=== PATIENT | male | born 1955 | race African-American/Black ===

== ENCOUNTER 2016-06-12 08:36 | Outpatient (CLI) | payer MEDICARE, MEDICAID ==
[2016-06-12 09:02] LABS: Bilirubin Negative (Negative); Blood, Urine Trace (Negative); Clarity Clear (Clear); Glucose, Urine (Dipstick) Negative (Negative); Leukocyte Negative (Negative); Nitrite Negative (Negative); Protein, Urine (Dipstick) Negative (Neg-Trace); Specific Gravity, Urine 1.025 (1.005-1.030); Urobilinogen 0.2 mg/dL (0.2-1.0); pH, Urine 6.5 (5.0-9.0)
[2016-06-12 09:08] LABS: Hemoglobin 13.2 g/dL (14.0-18.0); Mean Corpuscular HGB CONC 34.3 g/dL (32.0-36.0); Mean Corpuscular Hemoglobin 32.9 pg (27.0-31.0); Platelet Count 194 thou/uL (130-400); RBC Distribution Width 12.1 % (11.5-14.5); Red Blood Cell (RBC) Count 4.02 mill/uL (4.70-6.10); White Blood Cell (WBC) Count 6.2 thou/uL (4.8-10.8)
[2016-06-12 09:15] LABS: Hemoglobin A1c 5.5 % (4.0-6.0)
[2016-06-12 09:16] LABS: Bacteria/HPF None Seen HPF (None Seen); RBC/HPF None Seen HPF (0-3); Squamous Epithelial 0-3 HPF (0-3); WBC/HPF None Seen HPF (0-3)
[2016-06-12 09:31] LABS: Amphetamine Not Detected (NotDetected); Barbiturates Screen Not Detected (NotDetected); Benzodiazepine Screen Not Detected (NotDetected); Cocaine Metabolite Screen Not Detected (NotDetected); Medtox Control Line Valid? VALID (VALID); Methadone Not Detected (NotDetected); Methamphetamine Not Detected (NotDetected); Opiate Screen Detected (NotDetected); Oxycodone Screen Not Detected (NotDetected); Phencyclidine (PCP) Not Detected (NotDetected); THC/Cannabinoid Screen Not Detected (NotDetected); Tricyclic Screen Detected (NotDetected)
[2016-06-12 09:46] LABS: ALT (SGPT) 23 U/L (0-55); AST (SGOT) 44 U/L (5-34); Albumin 3.8 g/dL (3.5-5.0); Alkaline Phosphatase 73 U/L (40-150); Anion Gap 15 mmol/L (10-20); BUN (Urea Nitrogen) 11 mg/dL (8.4-25.7); Bilirubin, Total 0.4 mg/dL (0.2-1.2); Calc. Creatinine Clearance 0 mL/min (70-130); Calcium 9.2 mg/dL (7.8-10.44); Carbon Dioxide 23 mmol/L (22-29); Cardiac Risk 2.4 (Less than 4.5); Chloride 104 mmol/L (98-107); Cholesterol 111 mg/dL (< 200 Desired); Estimated GFR-MDRD Greater than 90; Globulin 3.2 g/dL (2.4-3.5); Glucose 88 mg/dL (70-105); HDL Cholesterol 47 mg/dL (>60 Neg Risk); LDL Cholesterol, Calculated 53 mg/dL; Sodium 138 mmol/L (136-145); Triglycerides 55 mg/dL (Less than 150); Uric Acid 5.3 mg/dL (3.5-7.2)
[2016-06-12 10:05] LABS: Free T4 (Free Thyroxine) 0.9 ng/dL (0.70-1.48); PSA-Asymptomatic (SCREENING) 0.16 ng/mL (0-4.0); Thyroid Stimulating Hormone 1.7748 uIU/mL (0.35-4.94)
[2016-06-12 17:11] LABS: Creatinine, Urine 118.81 mg/dL (63-166); Microalbumin Urine Less than 1.0 mg/dL (0.5-50.0); Microalbumin/Creat Ratio 8.4 mg/g (Less than 30)
[2016-06-12 17:36] LABS: Folate (Folic Acid) 18.9 ng/mL (7.0-31.4)
== END 2016-06-12 08:37 | disposition home or self-care (01) ==
LOC: MADLAB 08:36
PROVIDERS: ATTEND Family Medicine
DX: Z12.39 Encounter for other screening for malignant neoplasm of breast (principal); E03.9 Hypothyroidism, unspecified; R53.82 Chronic fatigue, unspecified; E78.2 Mixed hyperlipidemia; E11.9 Type 2 diabetes mellitus without complications; Z79.891 Long term (current) use of opiate analgesic
CPT/HCPCS: 36415; 80053; 80061; 80306; 81001; 82043; 82570; 82607; 82746; 83036; 84439; 84443; 84550; 85027; G0103

== ENCOUNTER 2016-11-30 10:07 | Outpatient (CLI) | payer MEDICARE, MEDICAID ==
[2016-11-30 10:43] LABS: Hemoglobin A1c 6.1 % (4.0-6.0)
[2016-11-30 10:53] LABS: Hemoglobin 13.6 g/dL (14.0-18.0); Mean Corpuscular Hemoglobin 32.2 pg (27.0-31.0); Mean Corpuscular Volume 97.6 fl (80.0-94.0); Mean Platelet Volume 7.1 fL (7.4-10.4); Platelet Count 177 thou/uL (130-400); RBC Distribution Width 12.4 % (11.5-14.5); Red Blood Cell (RBC) Count 4.22 mill/uL (4.70-6.10); White Blood Cell (WBC) Count 6.2 thou/uL (4.8-10.8)
[2016-11-30 10:55] LABS: ALT (SGPT) 23 U/L (8-55); AST (SGOT) 30 U/L (5-34); Albumin 3.6 g/dL (3.5-5.0); Alkaline Phosphatase 97 U/L (40-150); Anion Gap 12 mmol/L (10-20); BUN (Urea Nitrogen) 11 mg/dL (8.4-25.7); Bilirubin, Total 0.3 mg/dL (0.2-1.2); Calc. Creatinine Clearance 0 mL/min (70-130); Calcium 9.3 mg/dL (7.8-10.44); Carbon Dioxide 24 mmol/L (22-29); Cardiac Risk 3.3 (Less than 4.5); Chloride 103 mmol/L (98-107); Cholesterol 116 mg/dl (< 200 Desired); Estimated GFR-MDRD 86; Globulin 3.6 g/dL (2.4-3.5); Glucose 210 mg/dL (70-105); HDL Cholesterol 35 mg/dL (>60 Neg Risk); LDL Cholesterol, Calculated 36 mg/dL; Potassium 4.1 mmol/L (3.5-5.1); Protein, Total 7.2 g/dL (6.0-8.3); Sodium 135 mmol/L (136-145); Triglycerides 227 mg/dL (Less than 150); Uric Acid 4.7 mg/dL (3.5-7.2)
[2016-11-30 11:25] LABS: Free T4 (Free Thyroxine) 0.98 ng/dL (0.70-1.48); PSA-Asymptomatic (SCREENING) 0.15 ng/mL (0-4.0); Thyroid Stimulating Hormone 1.3249 uIU/mL (0.35-4.94)
[2016-11-30 17:53] LABS: Creatinine, Urine 154.83 mg/dL (63-166); Microalbumin Urine Less than 1.0 mg/dL (0.5-50.0); Microalbumin/Creat Ratio 6.5 mg/g (Less than 30)
== END 2016-11-30 10:08 | disposition home or self-care (01) ==
LOC: MADLAB 10:07
PROVIDERS: ATTEND Family Medicine
DX: Z12.39 Encounter for other screening for malignant neoplasm of breast (principal); E03.9 Hypothyroidism, unspecified; E11.9 Type 2 diabetes mellitus without complications; I10 Essential (primary) hypertension; R53.82 Chronic fatigue, unspecified
CPT/HCPCS: 36415; 80053; 80061; 82043; 83036; 84439; 84443; 84550; 85027; G0103

== ENCOUNTER 2016-12-15 10:03 | Outpatient (CLI) | payer MEDICARE, MEDICAID ==
[2016-12-15 10:33] LABS: Hemoglobin 13.1 g/dL (14.0-18.0); Mean Corpuscular HGB CONC 33.3 g/dL (32.0-36.0); Mean Corpuscular Hemoglobin 32.3 pg (27.0-31.0); Platelet Count 200 thou/uL (130-400); RBC Distribution Width 12.1 % (11.5-14.5); Red Blood Cell (RBC) Count 4.06 mill/uL (4.70-6.10); White Blood Cell (WBC) Count 6.9 thou/uL (4.8-10.8)
[2016-12-15 10:50] LABS: Band 2 % (5-11); MDiff Complete? YES; Manual Diff?? YES; Monocytes 12 % (0-10); Neutrophil 38 % (42-75)
[2016-12-15 10:51] LABS: Anisocytosis SLIGHT = 6-15 cells (100X) (0-5/hpf); Eosinophils 4 % (0-10); Lymphocytes 44 % (21-51); PLT Morphology Comment Appears Adequate
[2016-12-15 10:54] LABS: ALT (SGPT) 20 U/L (8-55); AST (SGOT) 30 U/L (5-34); Albumin 3.8 g/dL (3.5-5.0); Alkaline Phosphatase 107 U/L (40-150); Anion Gap 11 mmol/L (10-20); BUN (Urea Nitrogen) 13 mg/dL (8.4-25.7); Bilirubin, Total 0.3 mg/dL (0.2-1.2); Calc. Creatinine Clearance 0 mL/min (70-130); Calcium 9.2 mg/dL (7.8-10.44); Carbon Dioxide 25 mmol/L (22-29); Chloride 100 mmol/L (98-107); Estimated GFR-MDRD Greater than 90; Globulin 3.7 g/dL (2.4-3.5); Glucose 217 mg/dL (70-105); Potassium 4.1 mmol/L (3.5-5.1); Protein, Total 7.5 g/dL (6.0-8.3); Sodium 132 mmol/L (136-145); Uric Acid 5.2 mg/dL (3.5-7.2)
== END 2016-12-15 10:04 | disposition home or self-care (01) ==
LOC: MADLAB 10:03
PROVIDERS: ATTEND Podiatrist
DX: E11.40 Type 2 diabetes mellitus with diabetic neuropathy, unspecified (principal); M14.679 Charcot's joint, unspecified ankle and foot
CPT/HCPCS: 36415; 80053; 84550; 85025; 85652

== ENCOUNTER 2017-01-12 09:59 | Outpatient (CLI) | payer MEDICARE, MEDICAID ==
--- NOTE | 2017-01-12 12:19 | CT ---
CT RIGHT FOOT 01/12/2017 PROVIDED CLINICAL HISTORY: Bone spur. FINDINGS: There is no evidence for fracture or other acute osseous abnormality. Alignment appears anatomic. Joint spaces appear preserved. Plantar calcaneal enthesophyte formation is noted. There is nonspec ific, noncircumscribed food density seen within the subcutaneous adipose layer about the medial and lateral malleoli, as well as at the dorsum of the foot, proximally. There is muscular volume loss w ith fatty infiltration involving much of the intrinsic foot musculature. IMPRESSION: 1. Plantar calcaneal enthesophyte formation. 2. Nonspecific, noncircumscribed fluid density within the subcutaneous adipose layer, as described above, which could reflect edema or cellulitis. 3. Muscular volume loss and fatty infiltration involving much of the intrinsic foot musculature. POS: TOÑA
== END 2017-01-12 10:00 | disposition home or self-care (01) ==
LOC: MADCT 09:59
PROVIDERS: ATTEND Podiatrist Foot & Ankle Surgery
DX: E11.621 Type 2 diabetes mellitus with foot ulcer (principal)

== ENCOUNTER 2017-08-17 18:16 | Emergency (ER) | payer MEDICARE, MEDICAID | END 2017-08-17 20:10 | disposition home or self-care (01) | LOC: MADERS 18:16 | DX: Z46.89 Encounter for fitting and adjustment of other specified devices (principal); E11.9 Type 2 diabetes mellitus without complications; E78.5 Hyperlipidemia, unspecified; F17.210 Nicotine dependence, cigarettes, uncomplicated; Z79.899 Other long term (current) drug therapy | CPT/HCPCS: 99282 ==

== ENCOUNTER 2018-06-13 15:04 | Outpatient (CLI) | payer MEDICARE, MEDICAID | END 2018-06-13 15:05 | disposition home or self-care (01) | LOC: MADLAB 15:04 | PROVIDERS: ATTEND Family Medicine | DX: E03.9 Hypothyroidism, unspecified (principal); D50.9 Iron deficiency anemia, unspecified; D51.1 Vitamin B12 deficiency anemia due to selective vitamin B12 malabsorption with proteinuria; D52.9 Folate deficiency anemia, unspecified; E11.9 Type 2 diabetes mellitus without complications; I10 Essential (primary) hypertension | CPT/HCPCS: 82274 ==

== ENCOUNTER 2018-11-23 19:46 | Inpatient (IN) | payer MEDICARE, MEDICAID ==
--- NOTE | 2018-11-23 20:22 | RAD ---
3 views right foot: 11/23/2018 COMPARISON: None HISTORY: Great toe pain FINDINGS: No radiopaque foreign body or subcutaneous gas noted. The soft tissues associated with the great toe distally appear prominent suggesting skin thickening and subcutaneous fat edematous change. No displaced fracture or evidence of dislocation. There is enthesophyte formation at the orig in of the plantar aponeurosis. IMPRESSION: Soft tissue swelling involving the distal aspect of the great toe. Question inflammatory/ infectious change. No acute fracture or dislocation.
[2018-11-23] MEDS ORDERED: Vancomycin HCl 500 MG VIAL ONE (20:28)
[2018-11-23] MEDS ORDERED: Sodium Chloride 0.9% 250 ML 250 ML ONE (20:28)
[2018-11-23 20:48] LABS: Eosinophils 1 % (0-10); Hemoglobin 12.9 g/dL (14.0-18.0); Lymphocytes 24 % (21-51); MDiff Complete? YES; Mean Corpuscular HGB CONC 32.5 g/dL (32.0-36.0); Mean Corpuscular Hemoglobin 31.1 pg (27.0-31.0); Mean Corpuscular Volume 95.7 fL (78.0-98.0); Mean Platelet Volume 7.3 fL (7.4-10.4); Monocytes 6 % (0-10); Neutrophil 66 % (42-75); Platelet Count 178 thou/uL (130-400); Platelet Morphology Comment Appears Adequate; RBC Distribution Width 12.2 % (11.5-14.5); RBC Morphology Normal; Reactive Lymphocytes 3 % (0-10); Red Blood Cell (RBC) Count 4.16 mill/uL (4.70-6.10); White Blood Cell (WBC) Count 8.9 thou/uL (4.8-10.8)
[2018-11-23 20:54] LABS: ALT (SGPT) 12 U/L (8-55); AST (SGOT) 23 U/L (5-34); Albumin 3.6 g/dL (3.4-4.8); Alkaline Phosphatase 100 U/L (40-150); Anion Gap 16 mmol/L (10-20); BUN (Urea Nitrogen) 7 mg/dL (8.4-25.7); Bilirubin, Total 0.3 mg/dL (0.2-1.2); CRP (Inflammatory) 5.19 mg/dL (= or < 0.5); Calc. Creatinine Clearance 0 mL/min (70-130); Calcium 8.9 mg/dL (7.8-10.44); Carbon Dioxide 21 mmol/L (23-31); Chloride 100 mmol/L (98-107); Estimated GFR-MDRD 80; Globulin 3.6 g/dL (2.4-3.5); Glucose 493 mg/dL (80-115); Protein, Total 7.2 g/dL (5.8-8.1); Sodium 133 mmol/L (136-145)
[2018-11-23] MEDS ORDERED: Sodium Chloride 0.9% 1,000 ML ONE (21:04)
[2018-11-23] MEDS ORDERED: Acetaminophen 325 MG TAB PO PRN (23:07)
[2018-11-23] MEDS ORDERED: Gabapentin 300 MG CAP PO PRN (23:12)
[2018-11-23] MEDS ORDERED: Dextrose 50% Abboject 50 ML SYRINGE IVP PRN (23:15)
[2018-11-23] MEDS ORDERED: Dextrose 5% in Water 1,000 ML IV PRN (23:15)
[2018-11-23] MEDS ORDERED: traMADol HCl 50 MG TAB PO PRN (23:16)
[2018-11-23 23:18] VITALS: BMI 28.8
[2018-11-23] MEDS ORDERED: Polyethylene Glycol 3350 17 GM Packet PO PRN (23:19)
[2018-11-23] MEDS ORDERED: Ondansetron ODT 4 MG TAB PO PRN (23:19)
[2018-11-23] MEDS ORDERED: busPIRone HCl 5 MG TAB PO SCH (23:45)
[2018-11-23] MEDS ORDERED: Pravastatin Sodium 20 MG TAB PO SCH (23:45)
[2018-11-23] MEDS ORDERED: Lantus 1000 UNITS/10 ML VIAL SC SCH (23:45)
[2018-11-23] MEDS ORDERED: Ezetimibe 10 MG TAB PO SCH (23:45)
[2018-11-23] MEDS ORDERED: Famotidine 20 MG TAB PO SCH (23:45)
[2018-11-24] MEDS: HYDROcodone/Acetaminophen 10/325 mg Tablet PO PRN ×5 (00:08→21:04)
[2018-11-24] MEDS: HumaLOG 300 UNITS/3 ML VIAL SC PRN ×4 (00:10→16:54)
[2018-11-24 05:25] LABS: Anion Gap 10 mmol/L (10-20); BUN (Urea Nitrogen) 8 mg/dL (8.4-25.7); Calc. Creatinine Clearance 141 mL/min (70-130); Calcium 8.3 mg/dL (7.8-10.44); Carbon Dioxide 26 mmol/L (23-31); Chloride 104 mmol/L (98-107); Estimated GFR-MDRD Greater than 90; Glucose 190 mg/dL (80-115); Potassium 3.5 mmol/L (3.5-5.1); Sodium 136 mmol/L (136-145)
[2018-11-24 05:31] LABS: Band 1 % (5-11); Lymphocytes 36 % (21-51); MDiff Complete? YES; Mean Corpuscular HGB CONC 34.1 g/dL (32.0-36.0); Mean Corpuscular Hemoglobin 32.2 pg (27.0-31.0); Mean Corpuscular Volume 94.4 fL (78.0-98.0); Mean Platelet Volume 6.5 fL (7.4-10.4); Monocytes 13 % (0-10); Neutrophil 43 % (42-75); Platelet Count 154 thou/uL (130-400); Platelet Morphology Comment Appears Adequate; RBC Distribution Width 11.9 % (11.5-14.5); RBC Morphology Normal; Reactive Lymphocytes 7 % (0-10); Red Blood Cell (RBC) Count 3.73 mill/uL (4.70-6.10); White Blood Cell (WBC) Count 6.9 thou/uL (4.8-10.8)
[2018-11-24] MEDS ORDERED: Levothyroxine Sodium 88 MCG TAB PO SCH (06:00)
[2018-11-24] MEDS ORDERED: HumaLOG 300 UNITS/3 ML VIAL SC PRN (06:36)
[2018-11-24] MEDS: busPIRone HCl 5 MG TAB PO SCH ×2 (08:03→20:57)
[2018-11-24] MEDS: Famotidine 20 MG TAB PO SCH ×2 (08:03→20:58)
[2018-11-24] MEDS: Enoxaparin Sodium 40 MG/0.4 ML SYRINGE SC SCH (08:04)
[2018-11-24] MEDS ORDERED: Aspirin 81 mg Enteric Coated Tablet PO SCH (09:00)
[2018-11-24] MEDS ORDERED: traMADol HCl 50 MG TAB PO PRN (11:49)
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
[2018-11-24] MEDS: Gabapentin 300 MG CAP PO SCH ×2 (15:40→20:57)
[2018-11-24] MEDS ORDERED: Vancomycin HCl 1 GM in Sodium Chloride 0.9% 250 ML 250 ML IVPB SCH (21:00)
[2018-11-24] MEDS ORDERED: Lantus 1000 UNITS/10 ML VIAL SC SCH (21:00)
[2018-11-24] MEDS ORDERED: SEROQUEL PO SCH (21:00)
[2018-11-24] MEDS ORDERED: Atorvastatin Calcium 10 MG TAB PO SCH (21:00)
[2018-11-24] MEDS ORDERED: GLIPIZIDE 10 MG PO SCH (21:00)
[2018-11-24] MEDS ORDERED: QUETIAPINE FUMARATE 150 MG PO SCH (21:00)
[2018-11-24] MEDS ORDERED: Ezetimibe 10 MG TAB PO SCH ×2 (21:00)
[2018-11-24] MEDS ORDERED: Vancomycin HCl 1 GM in Premix Bag 1 BAG IVPB SCH (21:00)
[2018-11-24] MEDS ORDERED: Pravastatin Sodium 20 MG TAB PO SCH (21:00)
[2018-11-24] MEDS ORDERED: BUSPIRONE HCL 15 MG PO SCH (21:00)
[2018-11-24] MEDS ORDERED: Vancomycin HCl 500 MG in Sodium Chloride 0.9% 100 ML IVPB SCH (22:00)
[2018-11-25 05:02] LABS: #Eosinphils 0.2 thou/uL (0.0-0.7); #Monocytes 0.6 thou/uL (0.11-0.59); #Neutrophils 1.8 thou/uL (1.40-6.50); %Basophils 0.7 % (0.0-1.0); %Eosinophils 4.4 % (0.0-10.0); %Lymphocytes 42.9 % (21.0-51.0); %Monocytes 13.1 % (0.0-10.0); %Neutrophils 38.9 % (42.0-75.0); Hemoglobin 11.6 g/dL (14.0-18.0); Mean Corpuscular HGB CONC 34.1 g/dL (32.0-36.0); Mean Corpuscular Hemoglobin 32.1 pg (27.0-31.0); Mean Corpuscular Volume 94.2 fL (78.0-98.0); Mean Platelet Volume 6.5 fL (7.4-10.4); Platelet Count 156 thou/uL (130-400); RBC Distribution Width 11.9 % (11.5-14.5); Red Blood Cell (RBC) Count 3.62 mill/uL (4.70-6.10); White Blood Cell (WBC) Count 4.6 thou/uL (4.8-10.8)
[2018-11-25 05:18] LABS: Anion Gap 11 mmol/L (10-20); BUN (Urea Nitrogen) 10 mg/dL (8.4-25.7); Calc. Creatinine Clearance 157 mL/min (70-130); Calcium 8.2 mg/dL (7.8-10.44); Carbon Dioxide 25 mmol/L (23-31); Chloride 106 mmol/L (98-107); Estimated GFR-MDRD Greater than 90; Glucose 179 mg/dL (80-115); Potassium 3.6 mmol/L (3.5-5.1); Sodium 138 mmol/L (136-145)
[2018-11-25] MEDS ORDERED: Levothyroxine Sodium 88 MCG TAB PO SCH (06:00)
[2018-11-25 08:22] VITALS: BP 135/85; TEMP 98.2
[2018-11-25] MEDS: Enoxaparin Sodium 40 MG/0.4 ML SYRINGE SC SCH (08:23)
[2018-11-25] MEDS: Famotidine 20 MG TAB PO SCH (08:24)
[2018-11-25] MEDS: Gabapentin 300 MG CAP PO SCH ×2 (08:24→14:37)
[2018-11-25] MEDS: busPIRone HCl 5 MG TAB PO SCH (08:24)
[2018-11-25] MEDS: HumaLOG 300 UNITS/3 ML VIAL SC PRN ×2 (08:25→12:06)
[2018-11-25] MEDS: HYDROcodone/Acetaminophen 10/325 mg Tablet PO PRN (08:36)
[2018-11-25] MEDS ORDERED: Aspirin 81 mg Enteric Coated Tablet PO SCH (09:00)
[2018-11-25] MEDS ORDERED: Vancomycin HCl 1 GM in Sodium Chloride 0.9% 250 ML 250 ML IVPB SCH ×2 (12:53→13:15)
[2018-11-25] MEDS ORDERED: Vancomycin HCl 500 MG in Sodium Chloride 0.9% 100 ML IVPB SCH ×2 (12:53→13:15)
[2018-11-25] MEDS ORDERED: Clindamycin 150 MG CAP PO SCH (14:00)
--- NOTE | 2018-11-26 03:44 | DIS ---
DATE OF ADMISSION: 11/23/2018 DATE OF DISCHARGE: 11/25/2018 DISCHARGING PHYSICIAN: Blu Aquino MD DISCHARGE DIAGNOSES: Right lower leg cellulitis, improving. Right great toe diabetic wound, chronic pain. DISCHARGE DISPOSITION: Back to his home. DISCHARGE MEDICATIONS: 1. Clindamycin 300 mg t.i.d. x10 days. 2. BuSpar 15 b.i.d. every other day, 10 t.i.d. every other week. 3. Aspirin 81 mg daily. 4. [place] 10/325 one q.4 hours. 5. Zetia 10 at bedtime. 6. Gabapentin 600 t.i.d. p.r.n. 7. Glipizide XR 10 b.i.d. 8. Toujeo 40 at bedtime. 9. Levothyroxine 88 mcg daily. 10. Seroquel XR 150 at bedtime. 11. Tramadol 50 t.i.d. p.r.n. 12. Pravastatin 40 at bedtime. 13. MiraLAX 17 p.r.n. DISCHARGE INSTRUCTIONS: Follow up with PCP within one week. Follow up with home health billing specialist Michelle on 12/03. Follow up with pain doctor tomorrow. BRIEF HOSPITAL COURSE: Mr. Mercedes is a 63-year-old male who was admitted on night of 11/24, due to right lower leg cellulitis and a diabetic right great toe. The patient states he has had a right great toe wound for the last 3 years and has been going to see a home health billing specialist in [place], but on Sunday developed severe lower extremity pain, and he presented to the emergency room on Sunday. In the ER, he was started on IV vancomycin due to concern for streaking of his leg and cellulitis. Upon admission, per ED report streaking noted. When i evaluated patient said streaking was chronic hyperpigmentation due to chronic venous stasis to the right lower extremity. The patient was started on his home pain medicine and received 3 doses of IV vancomycin. Followup appointment with his pain specialist made and employment service specialist made, dressing to the foot great toe done also. The patient was excited to return back to his home in order to make his pain management appointment tomorrow. He was discharged home safely under the care of family member. PHYSICAL EXAMINATION: VITAL SIGNS: Discharge vital signs; temperature 98.2, pulse 78, respirations 18 , O2 saturation 95 on room air, blood pressure 135/85. TIME SPENT: Total time spent in preparation for the discharge summary and evaluation of patient was a total of 35 minutes. CODE STATUS: The patient is a full code. Job ID: [id number] [facility]
== END 2018-11-25 16:10 | disposition home or self-care (01) | DRG 603 ==
LOC: MADERS 19:46 → UNDOADMIN 21:38 → MADMS 21:38 → UNDOADMIN 22:38 → MADMS 22:40
PROVIDERS: ADMIT Family Medicine; ATTEND Family Medicine
DX: L03.115 Cellulitis of right lower limb (principal); E11.621 Type 2 diabetes mellitus with foot ulcer; L97.519 Non-pressure chronic ulcer of other part of right foot with unspecified severity; G89.29 Other chronic pain; E03.9 Hypothyroidism, unspecified; M79.7 Fibromyalgia; B19.20 Unspecified viral hepatitis C without hepatic coma; I10 Essential (primary) hypertension; E78.5 Hyperlipidemia, unspecified; F32.9 Major depressive disorder, single episode, unspecified; F51.04 Psychophysiologic insomnia; M19.90 Unspecified osteoarthritis, unspecified site; I87.8 Other specified disorders of veins; Z90.2 Acquired absence of lung [part of]; Z87.891 Personal history of nicotine dependence; Z79.82 Long term (current) use of aspirin; Z79.4 Long term (current) use of insulin
CPT/HCPCS: 36415; 36416; 80048; 80053; 83605; 85007; 85025; 85027; 86140; 87040; 96365; 96366; J1650; J1815; J3370; J3490; J7050

== ENCOUNTER 2020-09-28 16:26 | Emergency (ER) | payer MEDICARE, OTHER ==
[2020-09-28] MEDS ORDERED: Boostrix 0.5 ML (Tdap) VIAL ONE (16:46)
[2020-09-28] MEDS ORDERED: Lidocaine 1% w/Epinephrine 1:100K 20 ML VIAL ONE (16:53)
== END 2020-09-28 17:30 | disposition home or self-care (01) ==
LOC: MADERS 16:26
DX: S81.812A Laceration without foreign body, left lower leg, initial encounter (principal); E11.9 Type 2 diabetes mellitus without complications; E03.9 Hypothyroidism, unspecified; E78.5 Hyperlipidemia, unspecified; F17.210 Nicotine dependence, cigarettes, uncomplicated; Z79.4 Long term (current) use of insulin; Z79.899 Other long term (current) drug therapy; W45.8XXA Other foreign body or object entering through skin, initial encounter
CPT/HCPCS: 12002; 90471; 90715

== ENCOUNTER 2020-11-27 12:46 | Emergency (ER) | payer OTHER, MEDICARE ==
[2020-11-27] MEDS ORDERED: Amoxicillin/Potassium Clav 875 MG TAB ONE (13:29)
== END 2020-11-27 13:43 | disposition home or self-care (01) ==
LOC: MADERS 12:46
DX: S81.852A Open bite, left lower leg, initial encounter (principal); L03.116 Cellulitis of left lower limb; L73.1 Pseudofolliculitis barbae; E11.9 Type 2 diabetes mellitus without complications; E78.5 Hyperlipidemia, unspecified; E03.9 Hypothyroidism, unspecified; F17.210 Nicotine dependence, cigarettes, uncomplicated; Z79.899 Other long term (current) drug therapy; Z79.4 Long term (current) use of insulin; W54.0XXA Bitten by dog, initial encounter
CPT/HCPCS: 99283

== ENCOUNTER 2021-01-11 12:54 | Emergency (ER) | payer MEDICARE, OTHER ==
[2021-01-11] MEDS ORDERED: Mineral Oil ENEMA ONE ×2 (13:19→13:35)
== END 2021-01-11 13:49 | disposition home or self-care (01) ==
LOC: MADERS 12:54
DX: K59.00 Constipation, unspecified (principal); L25.9 Unspecified contact dermatitis, unspecified cause; K64.4 Residual hemorrhoidal skin tags; E11.9 Type 2 diabetes mellitus without complications; E78.5 Hyperlipidemia, unspecified; E03.9 Hypothyroidism, unspecified; F17.210 Nicotine dependence, cigarettes, uncomplicated
CPT/HCPCS: 99283

== ENCOUNTER 2022-05-24 12:49 | Outpatient (CLI) | payer OTHER ==
[2022-05-24 13:49] LABS: ALT (SGPT) 43 U/L (8-55); AST (SGOT) 43 U/L (5-34); Albumin 4.2 g/dL (3.4-4.8); Alkaline Phosphatase 58 U/L (40-110); Anion Gap 15 mmol/L (10-20); BUN (Urea Nitrogen) 11 mg/dL (8.4-25.7); Bilirubin, Total 0.5 mg/dL (0.2-1.2); Calc. Creatinine Clearance 0 mL/min (70-130); Calcium 9.7 mg/dL (7.8-10.44); Carbon Dioxide 26 mmol/L (23-31); Cardiac Risk 3.3 (Less than 4.5); Chloride 102 mmol/L (98-107); Cholesterol 119 mg/dl (< 200 Desired); Estimated GFR 92; Globulin 3.2 g/dL (2.4-3.5); Glucose 108 mg/dL (80-115); HDL Cholesterol 36 mg/dL (>60 Neg Risk); LDL Cholesterol, Calculated 45 mg/dL; Potassium 4.5 mmol/L (3.5-5.1); Protein, Total 7.4 g/dL (5.8-8.1); Sodium 138 mmol/L (136-145); Triglycerides 188 mg/dL (Less than 150)
[2022-05-24 14:09] LABS: Thyroid Stimulating Hormone 1.561 uIU/mL (0.35-4.94)
[2022-05-24 16:41] LABS: Free T4 (Free Thyroxine) 1.03 ng/dL (0.70-1.48)
[2022-05-24 16:43] LABS: Vitamin D, 25 Hydroxy 29.2 ng/ml (> 30.0)
[2022-05-24 17:22] LABS: Bilirubin Negative (Negative); Blood, Urine Negative (Negative); Clarity Clear (Clear); Glucose, Urine (Dipstick) Negative (Negative); Ketone, Urine Trace mg/dL (Negative); Leukocyte Negative (Negative); Nitrite Negative (Negative); Protein, Urine (Dipstick) Negative (Neg-Trace); Urobilinogen 0.2 mg/dL (Less than 2)
[2022-05-24 17:51] LABS: RBC/HPF 0-3 HPF (0-3); Specific Gravity, Urine 1.021 (1.002-1.036); Squamous Epithelial 0-3 HPF (0-3); WBC/HPF 0-3 HPF (0-3)
[2022-05-24 17:52] LABS: Bacteria/HPF Rare-Few HPF (None Seen)
[2022-05-24 18:26] LABS: Anisocytosis SLIGHT = 6-15 cells (100X) (0-5/hpf); Eosinophils 2 % (0-10); Hemoglobin 13.4 g/dL (14.0-18.0); Hypochromia SLIGHT = 6-15 cells (100X) (0-5/hpf); Lymphocytes 51 % (21-51); MDiff Complete? YES; Mean Corpuscular HGB CONC 33.1 g/dL (32.0-36.0); Mean Corpuscular Hemoglobin 31.5 pg (27.0-31.0); Mean Corpuscular Volume 95.4 fl (78.0-98.0); Monocytes 12 % (0-10); Neutrophil 33 % (42-75); Platelet Count 195 10x3/uL (130-400); Platelet Morphology Comment Appears Adequate; RBC Distribution Width 12.8 % (11.5-14.5); Reactive Lymphocytes 1 % (0-10); Red Blood Cell (RBC) Count 4.24 mill/uL (4.70-6.10); White Blood Cell (WBC) Count 5.5 10x3/uL (4.8-10.8)
== END 2022-05-24 12:50 | disposition home or self-care (01) ==
LOC: MADLABBHPM 12:49 → MADLAB 12:50
PROVIDERS: ATTEND Nurse Practitioner Family
DX: E03.9 Hypothyroidism, unspecified (principal); E78.2 Mixed hyperlipidemia; I10 Essential (primary) hypertension
CPT/HCPCS: 80053; 80061; 81001; 82306; 84439; 84443; 85025

== ENCOUNTER 2023-02-23 15:03 | Emergency (ER) | payer OTHER ==
[2023-02-23] MEDS ORDERED: Boostrix 0.5 ML (Tdap) VIAL (>/=7 yrs of age) ONE (15:42)
[2023-02-23] MEDS ORDERED: Bacitracin 1 PK ONE (15:42)
== END 2023-02-23 16:12 | disposition home or self-care (01) ==
LOC: MADERS 15:03
DX: S91.301A Unspecified open wound, right foot, initial encounter (principal); L97.419 Non-pressure chronic ulcer of right heel and midfoot with unspecified severity; E78.00 Pure hypercholesterolemia, unspecified; I10 Essential (primary) hypertension; E11.40 Type 2 diabetes mellitus with diabetic neuropathy, unspecified; E03.9 Hypothyroidism, unspecified; Z79.4 Long term (current) use of insulin; Z79.82 Long term (current) use of aspirin; Z79.84 Long term (current) use of oral hypoglycemic drugs; Z79.899 Other long term (current) drug therapy; W26.8XXA Contact with other sharp object(s), not elsewhere classified, initial encounter; W45.8XXA Other foreign body or object entering through skin, initial encounter
CPT/HCPCS: 90471; 90715

== ENCOUNTER 2023-03-12 08:38 | Inpatient (IN) | payer OTHER ==
[2023-03-12] MEDS ORDERED: Ipratropium/Albuterol 3 ML NEB ONE ×2 (10:14→12:41)
[2023-03-12] MEDS ORDERED: Sodium Chloride 0.9% 250 ML 250 ML ONE (10:50)
[2023-03-12] MEDS ORDERED: Vancomycin 1 GM VIAL ONE (10:50)
[2023-03-12] MEDS ORDERED: cefTRIAXone (ROCEPHIN) 1 GM VIAL ONE (11:08)
[2023-03-12] MEDS ORDERED: Sodium Chloride 0.9% 100 ML ONE (11:08)
[2023-03-12 11:14] LABS: Hematocrit 37.2 % (42.0-52.0); Hemoglobin 12.1 g/dL (14.0-18.0); Mean Corpuscular HGB CONC 32.6 g/dL (32.0-36.0); Mean Corpuscular Hemoglobin 33.2 pg (27.0-31.0); Mean Corpuscular Volume 101.9 fl (78.0-98.0); Mean Platelet Volume 7.4 fL (7.4-10.4); Platelet Count 229 10x3/uL (130-400); RBC Distribution Width 13.1 % (11.5-14.5); Red Blood Cell (RBC) Count 3.65 mill/uL (4.70-6.10); White Blood Cell (WBC) Count 5.9 10x3/uL (4.8-10.8)
[2023-03-12 11:24] LABS: Anisocytosis SLIGHT = 6-15 cells (100X) (0-5/hpf); Band 2 % (5-11); Eosinophils 3 % (0-10); Lymphocytes 41 % (21-51); MDiff Complete? YES; Manual Diff?? YES; Monocytes 7 % (0-10); Neutrophil 47 % (42-75); Platelet Adequacy Comment Appears Adequate
[2023-03-12 11:27] LABS: ALT (SGPT) 32 U/L (8-55); AST (SGOT) 50 U/L (5-34); Albumin 3.7 g/dL (3.4-4.8); Alkaline Phosphatase 75 U/L (40-110); Anion Gap 12 mmol/L (10-20); BUN (Urea Nitrogen) 7 mg/dL (8.4-25.7); Bilirubin, Total 0.4 mg/dL (0.2-1.2); Calc. Creatinine Clearance 0 mL/min (70-130); Calcium 8.9 mg/dL (7.8-10.44); Carbon Dioxide 24 mmol/L (23-31); Chloride 105 mmol/L (98-107); Estimated GFR 96; Globulin 3.2 g/dL (2.4-3.5); Glucose 139 mg/dL (80-115); Potassium 4.3 mmol/L (3.5-5.1); Protein, Total 6.9 g/dL (5.8-8.1); Sodium 137 mmol/L (136-145)
[2023-03-12] MEDS ORDERED: SILDENAFIL CITRATE 100 MG PO PRN (12:36)
[2023-03-12] MEDS ORDERED: Non-Formulary Item 1 EACH (Dulaglutide [Trulicity] 0.75 MG/0.5 ML Pen.Injctr) SC SCH (12:45)
[2023-03-12 13:25] VITALS: BMI 30.7
[2023-03-12] MEDS: busPIRone HCl 5 MG TAB PO SCH ×2 (14:53→20:04)
[2023-03-12] MEDS ORDERED: HYDROcodone/Acetaminophen 10/325 mg Tablet PO SCH (15:00)
[2023-03-12] MEDS ORDERED: DULAGLUTIDE 3 MG/0.5 ML DT SCH (15:00)
[2023-03-12] MEDS ORDERED: Dextrose 50% Abboject 50 ML SYRINGE IVP PRN (17:00)
[2023-03-12] MEDS ORDERED: Dextrose 5% in Water 1,000 ML IV PRN (17:00)
[2023-03-12] MEDS ORDERED: HumaLOG 300 UNITS/3 ML VIAL SC PRN (17:00)
[2023-03-12] MEDS ORDERED: HumaLOG 300 UNITS/3 ML VIAL SC SCH (17:00)
[2023-03-12] MEDS ORDERED: Glucagon 1 MG/ML KIT IM PRN (17:00)
[2023-03-12] MEDS ORDERED: VANCOMYCIN - SSTI IVPB PRN (17:23)
[2023-03-12] MEDS: Ezetimibe 10 MG TAB PO SCH (20:02)
[2023-03-12] MEDS: glipiZIDE 5 MG TAB PO SCH (20:02)
[2023-03-12] MEDS: QUEtiapine 100 MG TAB PO SCH (20:03)
[2023-03-12] MEDS: Pregabalin 75 MG CAP PO SCH (20:03)
[2023-03-12] MEDS: Atorvastatin Calcium 10 MG TAB PO SCH (20:03)
[2023-03-12] MEDS: Lantus 1000 UNITS/10 ML VIAL SC SCH (20:05)
[2023-03-12] MEDS: Vancomycin HCl 750 MG in Sodium Chloride 0.9% 250 ML 250 ML IVPB SCH ×2 (20:05→20:42)
[2023-03-12] MEDS: traMADol HCl 50 MG TAB PO SCH (20:40)
[2023-03-12] MEDS ORDERED: Vancomycin 1 GM in Sodium Chloride 0.9% 250 ML 250 ML IVPB SCH (23:00)
[2023-03-13] MEDS: HYDROcodone/Acetaminophen 10/325 mg Tablet PO PRN ×2 (01:00→20:58)
[2023-03-13] MEDS: Levothyroxine Sodium 100 MCG TAB PO SCH (05:17)
[2023-03-13] MEDS: Vancomycin HCl 750 MG in Sodium Chloride 0.9% 250 ML 250 ML IVPB SCH ×2 (07:44→08:05)
[2023-03-13] MEDS: busPIRone HCl 5 MG TAB PO SCH ×3 (08:06→21:00)
[2023-03-13] MEDS: Loratadine 10 MG TAB PO SCH (08:07)
[2023-03-13] MEDS: glipiZIDE 5 MG TAB PO SCH ×2 (08:07→21:04)
[2023-03-13] MEDS: Lisinopril 10 MG TAB PO SCH (08:07)
[2023-03-13] MEDS: Saccharomyces boulardii 250 MG CAP PO SCH (08:07)
[2023-03-13] MEDS: Pregabalin 75 MG CAP PO SCH ×2 (08:08→20:59)
[2023-03-13] MEDS: traMADol HCl 50 MG TAB PO SCH ×2 (08:08→21:02)
[2023-03-13] MEDS: Lantus 1000 UNITS/10 ML VIAL SC SCH (10:58)
[2023-03-13] MEDS: cefTRIAXone\\ROCEPHIN 1 GM in Sodium Chloride 0.9% 100 ML IVPB SCH (11:47)
[2023-03-13] MEDS: HumaLOG 300 UNITS/3 ML VIAL SC PRN (17:00)
[2023-03-13 19:20] LABS: Vancomycin, Trough 12.8 ug/mL
[2023-03-13] MEDS ORDERED: Vancomycin 1 GM VIAL IVPB SCH (20:30)
[2023-03-13] MEDS ORDERED: traMADol HCl 50 MG TAB ONE (20:43)
[2023-03-13] MEDS: Vancomycin 1 GM in Sodium Chloride 0.9% 250 ML 250 ML IVPB SCH ×2 (20:50→20:52)
[2023-03-13] MEDS: Ezetimibe 10 MG TAB PO SCH (20:59)
[2023-03-13] MEDS: QUEtiapine 100 MG TAB PO SCH (21:00)
[2023-03-13] MEDS: Atorvastatin Calcium 10 MG TAB PO SCH (21:00)
[2023-03-13] MEDS ORDERED: Polyethylene Glycol 3350 17 GM Packet PO SCH (22:30)
[2023-03-14] MEDS: Levothyroxine Sodium 100 MCG TAB PO SCH (05:04)
[2023-03-14] MEDS: busPIRone HCl 5 MG TAB PO SCH ×3 (08:16→20:59)
[2023-03-14] MEDS: Saccharomyces boulardii 250 MG CAP PO SCH (08:16)
[2023-03-14] MEDS: traMADol HCl 50 MG TAB PO SCH ×2 (08:17→20:59)
[2023-03-14] MEDS: Pregabalin 75 MG CAP PO SCH ×2 (08:17→20:58)
[2023-03-14] MEDS: Ascorbic Acid 500 mg Chewable Tablet PO SCH (08:17)
[2023-03-14] MEDS: glipiZIDE 5 MG TAB PO SCH ×2 (08:18→20:57)
[2023-03-14] MEDS: Loratadine 10 MG TAB PO SCH (08:18)
[2023-03-14] MEDS: Lisinopril 10 MG TAB PO SCH (08:18)
[2023-03-14] MEDS: Vancomycin 1 GM in Sodium Chloride 0.9% 250 ML 250 ML IVPB SCH ×4 (10:17→21:02)
[2023-03-14] MEDS: HumaLOG 300 UNITS/3 ML VIAL SC PRN ×2 (12:22→16:53)
[2023-03-14] MEDS: HYDROcodone/Acetaminophen 10/325 mg Tablet PO PRN ×2 (12:26→21:00)
[2023-03-14] MEDS: cefTRIAXone\\ROCEPHIN 1 GM in Sodium Chloride 0.9% 100 ML IVPB SCH (14:54)
[2023-03-14] MEDS: Senokot S 8.6-50 MG TAB PO PRN (15:15)
[2023-03-14] MEDS ORDERED: Polyethylene Glycol 3350 17 GM Packet PO SCH (17:00)
[2023-03-14] MEDS: QUEtiapine 100 MG TAB PO SCH (20:58)
[2023-03-14] MEDS: Ezetimibe 10 MG TAB PO SCH (20:58)
[2023-03-14] MEDS: Atorvastatin Calcium 10 MG TAB PO SCH (20:59)
[2023-03-15] MEDS: Levothyroxine Sodium 100 MCG TAB PO SCH (05:08)
[2023-03-15 07:53] LABS: Anion Gap 12 mmol/L (10-20); BUN (Urea Nitrogen) 12 mg/dL (8.4-25.7); Calc. Creatinine Clearance 133 mL/min (70-130); Carbon Dioxide 24 mmol/L (23-31); Chloride 103 mmol/L (98-107); Estimated GFR 96; Glucose 146 mg/dL (80-115); Sodium 135 mmol/L (136-145)
[2023-03-15 08:02] VITALS: TEMP 98.7
[2023-03-15] MEDS: traMADol HCl 50 MG TAB PO SCH (08:13)
[2023-03-15] MEDS: Saccharomyces boulardii 250 MG CAP PO SCH (08:13)
[2023-03-15] MEDS: Pregabalin 75 MG CAP PO SCH (08:13)
[2023-03-15] MEDS: Lisinopril 10 MG TAB PO SCH (08:14)
[2023-03-15] MEDS: Ascorbic Acid 500 mg Chewable Tablet PO SCH (08:14)
[2023-03-15] MEDS: glipiZIDE 5 MG TAB PO SCH (08:14)
[2023-03-15] MEDS: busPIRone HCl 5 MG TAB PO SCH (08:14)
[2023-03-15] MEDS: Loratadine 10 MG TAB PO SCH (08:15)
[2023-03-15 08:23] LABS: Vancomycin, Trough 20.4 ug/mL
[2023-03-15 09:00] LABS: #Eosinphils 0.2 thou/uL (0.0-0.7); #Lymphocytes 1.9 thou/uL (1.20-3.40); #Monocytes 0.5 thou/uL (0.11-0.59); #Neutrophils 1.5 thou/uL (1.40-6.50); %Eosinophils 4.5 % (0.0-10.0); %Lymphocytes 45.9 % (21.0-51.0); %Monocytes 11.4 % (0.0-10.0); %Neutrophils 37.2 % (42.0-75.0); Hematocrit 36.2 % (42.0-52.0); Hemoglobin 11.7 g/dL (14.0-18.0); Mean Corpuscular HGB CONC 32.5 g/dL (32.0-36.0); Mean Corpuscular Hemoglobin 33.1 pg (27.0-31.0); Mean Corpuscular Volume 101.9 fl (78.0-98.0); Mean Platelet Volume 7.4 fL (7.4-10.4); Platelet Count 190 10x3/uL (130-400); RBC Distribution Width 13.4 % (11.5-14.5); Red Blood Cell (RBC) Count 3.55 mill/uL (4.70-6.10); White Blood Cell (WBC) Count 4.1 10x3/uL (4.8-10.8)
[2023-03-15] MEDS ORDERED: FLU VACC QS2023(65UP)/MF59C/PF 60 MCG/0.5 ML SYRINGE IM ONE (09:00)
[2023-03-15] MEDS ORDERED: Vancomycin HCl 750 MG in Sodium Chloride 0.9% 250 ML 250 ML IVPB SCH (09:00)
[2023-03-15] MEDS: Vancomycin 1 GM in Sodium Chloride 0.9% 250 ML 250 ML IVPB SCH (09:47)
[2023-03-15] MEDS: HYDROcodone/Acetaminophen 10/325 mg Tablet PO PRN (09:52)
[2023-03-15] MEDS: Senokot S 8.6-50 MG TAB PO PRN (09:52)
[2023-03-15 11:48] VITALS: BP 163/88
[2023-03-15] MEDS: cefTRIAXone\\ROCEPHIN 1 GM in Sodium Chloride 0.9% 100 ML IVPB SCH (14:03)
== END 2023-03-15 13:15 | disposition swing bed (61) | DRG 638 ==
LOC: MADERS 08:38 → MADMS 11:27 → UNDOADMIN 11:27
PROVIDERS: ADMIT Family Medicine; ATTEND Family Medicine
DX: E11.621 Type 2 diabetes mellitus with foot ulcer (principal); L03.115 Cellulitis of right lower limb; L97.419 Non-pressure chronic ulcer of right heel and midfoot with unspecified severity; E11.40 Type 2 diabetes mellitus with diabetic neuropathy, unspecified; G89.4 Chronic pain syndrome; E78.5 Hyperlipidemia, unspecified; E03.9 Hypothyroidism, unspecified; Z79.4 Long term (current) use of insulin; Z79.899 Other long term (current) drug therapy; F41.9 Anxiety disorder, unspecified; F32.A Depression, unspecified; I11.0 Hypertensive heart disease with heart failure; I50.9 Heart failure, unspecified; Z98.890 Other specified postprocedural states; E11.649 Type 2 diabetes mellitus with hypoglycemia without coma; S91.331D Puncture wound without foreign body, right foot, subsequent encounter
CPT/HCPCS: 36415; 36416; 80048; 80053; 80202; 85025; 86140; 90471; 90694; 96365; 96375; 97602; G0008; J0696; J1650; J1815; J3370; J3490; J7050; J7620

== ENCOUNTER 2023-03-15 13:19 | Inpatient (IN) | payer OTHER ==
[2023-03-15 13:58] VITALS: BMI 30.7
[2023-03-15] MEDS ORDERED: Dextrose 50% Abboject 50 ML SYRINGE SLOW IVP PRN ×2 (14:48→15:00)
[2023-03-15] MEDS ORDERED: Senokot S 8.6-50 MG TAB PO PRN (14:57)
[2023-03-15] MEDS ORDERED: Glucagon 1 MG/ML KIT IM PRN (15:00)
[2023-03-15] MEDS ORDERED: Insulin Regular 300 UNITS/3 ML VIAL SC PRN (15:00)
[2023-03-15] MEDS ORDERED: cefTRIAXone (ROCEPHIN) 1 GM VIAL IVPB SCH (15:00)
[2023-03-15] MEDS ORDERED: cefTRIAXone\\ROCEPHIN 1 GM in Sodium Chloride 0.9% 100 ML IVPB SCH (15:15)
[2023-03-15] MEDS: busPIRone HCl 5 MG TAB PO SCH ×2 (16:02→20:16)
[2023-03-15] MEDS: Bisacodyl 5 MG TAB PO PRN (17:35)
[2023-03-15] MEDS: HumaLOG 300 UNITS/3 ML VIAL SC PRN ×2 (17:35→20:47)
[2023-03-15] MEDS: Vancomycin 1 GM in Sodium Chloride 0.9% 250 ML 250 ML IVPB SCH (20:06)
[2023-03-15] MEDS: Vancomycin HCl 750 MG in Sodium Chloride 0.9% 250 ML 250 ML IVPB SCH (20:08)
[2023-03-15] MEDS: Polyethylene Glycol 3350 17 GM Packet PO SCH (20:15)
[2023-03-15] MEDS: glipiZIDE 5 MG TAB PO SCH (20:15)
[2023-03-15] MEDS: QUEtiapine 100 MG TAB PO SCH (20:16)
[2023-03-15] MEDS: Ezetimibe 10 MG TAB PO SCH (20:17)
[2023-03-15] MEDS: traMADol HCl 50 MG TAB PO SCH (20:17)
[2023-03-15] MEDS: Pregabalin 75 MG CAP PO SCH (20:17)
[2023-03-15] MEDS: HYDROcodone/Acetaminophen 10/325 mg Tablet PO PRN (20:17)
[2023-03-15] MEDS: Atorvastatin Calcium 10 MG TAB PO SCH (20:17)
[2023-03-15] MEDS ORDERED: Vancomycin HCl 750 MG VIAL IVPB SCH (21:00)
[2023-03-16] MEDS: Levothyroxine Sodium 100 MCG TAB PO SCH (05:14)
[2023-03-16] MEDS: Ascorbic Acid 500 mg Chewable Tablet PO SCH (09:08)
[2023-03-16] MEDS: glipiZIDE 5 MG TAB PO SCH ×2 (09:08→21:17)
[2023-03-16] MEDS: Pregabalin 75 MG CAP PO SCH ×2 (09:08→21:18)
[2023-03-16] MEDS: Lisinopril 10 MG TAB PO SCH (09:08)
[2023-03-16] MEDS: busPIRone HCl 5 MG TAB PO SCH ×3 (09:08→21:17)
[2023-03-16] MEDS: Loratadine 10 MG TAB PO SCH (09:09)
[2023-03-16] MEDS: traMADol HCl 50 MG TAB PO SCH ×2 (09:09→21:19)
[2023-03-16] MEDS: Saccharomyces boulardii 250 MG CAP PO SCH (09:09)
[2023-03-16] MEDS: Vancomycin HCl 750 MG in Sodium Chloride 0.9% 250 ML 250 ML IVPB SCH ×2 (09:10→21:10)
[2023-03-16] MEDS: Vancomycin 1 GM in Sodium Chloride 0.9% 250 ML 250 ML IVPB SCH ×2 (09:10→21:09)
[2023-03-16] MEDS: cefTRIAXone\\ROCEPHIN 1 GM in Sodium Chloride 0.9% 100 ML IVPB SCH (15:45)
[2023-03-16] MEDS: HumaLOG 300 UNITS/3 ML VIAL SC PRN ×2 (17:02→21:24)
[2023-03-16] MEDS ORDERED: Betamethasone 0.1% Cream 15 GM TUBE TOP PRN (18:54)
[2023-03-16] MEDS ORDERED: diphenhydrAMINE 50 MG/ML VIAL IVP PRN (18:57)
[2023-03-16] MEDS ORDERED: diphenhydrAMINE 25 MG CAP PO SCH (19:00)
[2023-03-16 19:58] LABS: Vancomycin, Trough 16.2 ug/mL
[2023-03-16] MEDS: QUEtiapine 100 MG TAB PO SCH (21:18)
[2023-03-16] MEDS: Ezetimibe 10 MG TAB PO SCH (21:18)
[2023-03-16] MEDS: Polyethylene Glycol 3350 17 GM Packet PO SCH (21:22)
[2023-03-16] MEDS: Atorvastatin Calcium 10 MG TAB PO SCH (21:23)
[2023-03-16] MEDS: HYDROcodone/Acetaminophen 10/325 mg Tablet PO PRN (22:27)
[2023-03-17] MEDS: Levothyroxine Sodium 100 MCG TAB PO SCH (05:25)
[2023-03-17] MEDS: Loratadine 10 MG TAB PO SCH (08:55)
[2023-03-17] MEDS: Pregabalin 75 MG CAP PO SCH ×2 (08:55→20:24)
[2023-03-17] MEDS: Ascorbic Acid 500 mg Chewable Tablet PO SCH (08:55)
[2023-03-17] MEDS: busPIRone HCl 5 MG TAB PO SCH ×3 (08:56→20:24)
[2023-03-17] MEDS: traMADol HCl 50 MG TAB PO SCH ×2 (08:56→20:21)
[2023-03-17] MEDS: Vancomycin HCl 750 MG in Sodium Chloride 0.9% 250 ML 250 ML IVPB SCH ×2 (08:57→20:21)
[2023-03-17] MEDS: Lisinopril 10 MG TAB PO SCH (08:57)
[2023-03-17] MEDS: glipiZIDE 5 MG TAB PO SCH ×2 (08:57→20:24)
[2023-03-17] MEDS: Saccharomyces boulardii 250 MG CAP PO SCH (08:57)
[2023-03-17] MEDS: Vancomycin 1 GM in Sodium Chloride 0.9% 250 ML 250 ML IVPB SCH ×2 (08:58→20:21)
[2023-03-17] MEDS: Lantus 1000 UNITS/10 ML VIAL SC SCH (08:58)
[2023-03-17] MEDS: HumaLOG 300 UNITS/3 ML VIAL SC PRN ×4 (08:58→20:36)
[2023-03-17] MEDS: Bisacodyl 5 MG TAB PO PRN (12:22)
[2023-03-17] MEDS: cefTRIAXone\\ROCEPHIN 1 GM in Sodium Chloride 0.9% 100 ML IVPB SCH (15:40)
[2023-03-17] MEDS: HYDROcodone/Acetaminophen 10/325 mg Tablet PO PRN (20:22)
[2023-03-17] MEDS: Atorvastatin Calcium 10 MG TAB PO SCH (20:23)
[2023-03-17] MEDS: QUEtiapine 100 MG TAB PO SCH (20:23)
[2023-03-17] MEDS: Polyethylene Glycol 3350 17 GM Packet PO SCH (20:24)
[2023-03-17] MEDS: Ezetimibe 10 MG TAB PO SCH (20:24)
[2023-03-18] MEDS: Levothyroxine Sodium 100 MCG TAB PO SCH (05:19)
[2023-03-18] MEDS: Vancomycin 1 GM in Sodium Chloride 0.9% 250 ML 250 ML IVPB SCH ×2 (09:15→20:48)
[2023-03-18] MEDS: glipiZIDE 5 MG TAB PO SCH ×2 (09:16→20:44)
[2023-03-18] MEDS: Vancomycin HCl 500 MG in Sodium Chloride 0.9% 100 ML IVPB SCH ×2 (09:16→20:48)
[2023-03-18] MEDS: Saccharomyces boulardii 250 MG CAP PO SCH (09:16)
[2023-03-18] MEDS: Pregabalin 75 MG CAP PO SCH ×2 (09:16→20:45)
[2023-03-18] MEDS: busPIRone HCl 5 MG TAB PO SCH ×3 (09:17→20:45)
[2023-03-18] MEDS: Lisinopril 10 MG TAB PO SCH (09:17)
[2023-03-18] MEDS: Ascorbic Acid 500 mg Chewable Tablet PO SCH (09:17)
[2023-03-18] MEDS: traMADol HCl 50 MG TAB PO SCH ×2 (09:17→20:43)
[2023-03-18] MEDS: Loratadine 10 MG TAB PO SCH (09:18)
[2023-03-18] MEDS: Lantus 1000 UNITS/10 ML VIAL SC SCH (09:18)
[2023-03-18] MEDS: diphenhydrAMINE 50 MG/ML VIAL IVP PRN ×2 (09:25→21:06)
[2023-03-18] MEDS: cefTRIAXone\\ROCEPHIN 1 GM in Sodium Chloride 0.9% 100 ML IVPB SCH (15:32)
[2023-03-18] MEDS: HumaLOG 300 UNITS/3 ML VIAL SC PRN ×2 (17:08→21:06)
[2023-03-18] MEDS: HYDROcodone/Acetaminophen 10/325 mg Tablet PO PRN (17:13)
[2023-03-18] MEDS: QUEtiapine 100 MG TAB PO SCH (20:44)
[2023-03-18] MEDS: Atorvastatin Calcium 10 MG TAB PO SCH (20:45)
[2023-03-18] MEDS: Ezetimibe 10 MG TAB PO SCH (20:45)
[2023-03-18] MEDS: Polyethylene Glycol 3350 17 GM Packet PO SCH (21:07)
[2023-03-19] MEDS: Levothyroxine Sodium 100 MCG TAB PO SCH (06:11)
[2023-03-19] MEDS: Vancomycin 1 GM in Sodium Chloride 0.9% 250 ML 250 ML IVPB SCH (08:25)
[2023-03-19] MEDS: Vancomycin HCl 500 MG in Sodium Chloride 0.9% 100 ML IVPB SCH (08:26)
[2023-03-19] MEDS: diphenhydrAMINE 50 MG/ML VIAL IVP PRN (08:27)
[2023-03-19] MEDS: Loratadine 10 MG TAB PO SCH (08:28)
[2023-03-19] MEDS: Saccharomyces boulardii 250 MG CAP PO SCH (08:28)
[2023-03-19] MEDS: Ascorbic Acid 500 mg Chewable Tablet PO SCH (08:28)
[2023-03-19] MEDS: busPIRone HCl 5 MG TAB PO SCH ×3 (08:28→20:31)
[2023-03-19] MEDS: glipiZIDE 5 MG TAB PO SCH ×2 (08:28→20:29)
[2023-03-19] MEDS: Lisinopril 10 MG TAB PO SCH (08:29)
[2023-03-19] MEDS: Lantus 1000 UNITS/10 ML VIAL SC SCH ×3 (08:31→22:19)
[2023-03-19] MEDS: Pregabalin 75 MG CAP PO SCH ×2 (08:47→20:30)
[2023-03-19] MEDS: traMADol HCl 50 MG TAB PO SCH ×2 (08:47→20:29)
[2023-03-19] MEDS ORDERED: DULAGLUTIDE 3 MG/0.5 ML DT SCH (09:00)
[2023-03-19] MEDS: HumaLOG 300 UNITS/3 ML VIAL SC PRN ×2 (11:44→17:37)
[2023-03-19] MEDS: cefTRIAXone\\ROCEPHIN 1 GM in Sodium Chloride 0.9% 100 ML IVPB SCH (15:20)
[2023-03-19] MEDS: Ezetimibe 10 MG TAB PO SCH (20:29)
[2023-03-19] MEDS: HYDROcodone/Acetaminophen 10/325 mg Tablet PO PRN (20:30)
[2023-03-19] MEDS: Atorvastatin Calcium 10 MG TAB PO SCH (20:31)
[2023-03-19] MEDS: Polyethylene Glycol 3350 17 GM Packet PO SCH (20:31)
[2023-03-19] MEDS: QUEtiapine 100 MG TAB PO SCH (20:31)
[2023-03-20] MEDS: Levothyroxine Sodium 100 MCG TAB PO SCH (05:04)
[2023-03-20 07:22] VITALS: BP 135/76; TEMP 98.2
[2023-03-20] MEDS: Pregabalin 75 MG CAP PO SCH (08:05)
[2023-03-20] MEDS: traMADol HCl 50 MG TAB PO SCH (08:05)
[2023-03-20] MEDS: Ascorbic Acid 500 mg Chewable Tablet PO SCH (08:06)
[2023-03-20] MEDS: glipiZIDE 5 MG TAB PO SCH (08:06)
[2023-03-20] MEDS: Saccharomyces boulardii 250 MG CAP PO SCH (08:06)
[2023-03-20] MEDS: busPIRone HCl 5 MG TAB PO SCH ×2 (08:06→15:05)
[2023-03-20] MEDS: Loratadine 10 MG TAB PO SCH (08:07)
[2023-03-20] MEDS: Lantus 1000 UNITS/10 ML VIAL SC SCH (08:07)
[2023-03-20] MEDS: Lisinopril 10 MG TAB PO SCH (08:07)
[2023-03-20] MEDS: cefTRIAXone\\ROCEPHIN 1 GM in Sodium Chloride 0.9% 100 ML IVPB SCH (15:05)
[2023-03-20] MEDS: HYDROcodone/Acetaminophen 10/325 mg Tablet PO PRN (15:14)
[2023-03-20] MEDS: HumaLOG 300 UNITS/3 ML VIAL SC PRN (16:44)
== END 2023-03-20 19:10 | disposition home or self-care (01) | DRG 638 ==
LOC: MADMS 13:19
PROVIDERS: ADMIT Family Medicine; ATTEND Family Medicine
DX: E11.621 Type 2 diabetes mellitus with foot ulcer (principal); L03.115 Cellulitis of right lower limb; L97.419 Non-pressure chronic ulcer of right heel and midfoot with unspecified severity; E11.649 Type 2 diabetes mellitus with hypoglycemia without coma; E11.40 Type 2 diabetes mellitus with diabetic neuropathy, unspecified; G89.4 Chronic pain syndrome; I10 Essential (primary) hypertension; E78.5 Hyperlipidemia, unspecified; E03.9 Hypothyroidism, unspecified; E11.65 Type 2 diabetes mellitus with hyperglycemia; Z79.4 Long term (current) use of insulin; Z79.899 Other long term (current) drug therapy; Z79.84 Long term (current) use of oral hypoglycemic drugs; Z98.890 Other specified postprocedural states; Z87.891 Personal history of nicotine dependence
CPT/HCPCS: 36415; 36416; 80202; 82565; J0696; J1200; J1650; J1815; J3370; J3490; J7050

== ENCOUNTER 2024-12-19 15:49 | Outpatient (CLI) | payer MEDICAID, OTHER | END 2024-12-19 15:50 | disposition home or self-care (01) | LOC: MADRAD 15:49 | PROVIDERS: ATTEND Family Medicine | DX: Z01.818 Encounter for other preprocedural examination (principal); J98.4 Other disorders of lung | CPT/HCPCS: 71046 ==